=== PATIENT | male | born 1985 | race Caucasian/White ===

== ENCOUNTER 2019-07-24 16:36 | Emergency (ER) | payer SELFPAY ==
[~2019-07-24] VITALS: Ht 170.2 cm; Wt 89.8 kg
[2019-07-24 16:44] VITALS: Ht 170.2 cm; Wt 89.8 kg
[2019-07-24 17:45] LABS: BASOPHIL % 0.2 % (0-2); PLATELET COUNT 146 x10^3mcL (130-400); RED CELL DISTRIBUTION WIDTH 13.4 % (11.5-14.5)
[2019-07-24 17:51] LABS: CALCIUM 8.2 mg/dL (8.5-10.1); CARBON DIOXIDE 28.2 mmol/L (21-32); CHLORIDE SERUM 103 mmol/L (98-107); CREATININE SERUM 1.2 mg/dL (0.7-1.3); GFR1 > 60 mL/min; GLUCOSE SERUM 89 mg/dL (74-106); POTASSIUM SERUM 4.1 mmol/L (3.5-5.1); SODIUM SERUM 142 mmol/L (136-145)
[2019-07-24 17:55] LABS: ALBUMIN 4.2 g/dL (3.4-5.0); ALKALINE PHOSPHATASE 132 U/L (46-116); ALT/SGPT 48 U/L (16-63); AST/SGOT 33 U/L (15-37); BILIRUBIN TOTAL 0.7 mg/dL (0.20-1.00); LIPASE 87 IU/L (73-393); TOTAL PROTEIN, SERUM 7.7 g/dL (6.4-8.2)
[2019-07-24 19:40] VITALS: BP 117/77
== END 2019-07-24 19:40 | disposition home or self-care (01) ==
LOC: ED 16:36
PROVIDERS: Emergency Medicine
DX: A05.9 Bacterial foodborne intoxication, unspecified (principal); K52.9 Noninfective gastroenteritis and colitis, unspecified; L84 Corns and callosities
CPT/HCPCS: 36415; Q0162

== ENCOUNTER 2019-12-31 15:18 | Emergency (ER) | payer SELFPAY ==
[~2019-12-31] VITALS: Ht 170.2 cm; Wt 90.7 kg
[2019-12-31 15:26] VITALS: Ht 170.2 cm; Wt 90.7 kg
[2019-12-31 17:08] VITALS: BP 116/77
== END 2019-12-31 17:08 | disposition home or self-care (01) ==
LOC: ED 15:18
DX: U07.1 COVID-19 (principal); J12.89 Other viral pneumonia

== ENCOUNTER 2020-04-15 19:49 | Emergency (ER) | payer SELFPAY ==
[~2020-04-15] VITALS: Ht 170.2 cm; Wt 91.6 kg
[2020-04-15 20:00] VITALS: Ht 170.2 cm; Wt 91.6 kg
[2020-04-15 21:27] VITALS: BP 140/71
== END 2020-04-15 21:28 | disposition home or self-care (01) ==
LOC: ED 19:49
DX: Z11.3 Encounter for screening for infections with a predominantly sexual mode of transmission (principal)
CPT/HCPCS: 87491; 87591; J0696